=== PATIENT | female | born 1995 | race African-American/Black ===

== ENCOUNTER 2019-02-12 10:08 | Emergency (ER) | payer OTHER ==
[2019-02-12] MEDS: CYCLOBENZAPRINE 10 MG TAB PO (10:34)
[2019-02-12] MEDS: KETOROLAC 60 MG INJ IM (10:34)
== END 2019-02-12 12:45 | disposition home or self-care (01) ==
LOC: FTE 10:08
DX: M62.838 Other muscle spasm (principal)
CPT/HCPCS: 72040; 81025; 96372; 99284-25